=== PATIENT | female | born 1955 | race Caucasian/White ===

== ENCOUNTER 2024-02-13 13:38 | Outpatient (AMB) | payer OTHER, SELFPAY ==
--- NOTE | 2024-02-13 13:40 | MHC.OFFVIS ---
Intake Vital Signs 02/13/24 13:48 Height 5 ft 7 in Weight 161 lb BMI 25.2 BP 110/68 Blood Pressure Location Rt brachial Position Sitting Respiration 16 Pulse 62 Pulse Source Pulse Oximeter Pulse Oximetry (%) 98 Oxygen Delivery Method Room Air Intake Visit Reasons: benign neoplasm of cerebral meninges-CONF Intake Note: Pt presents for new pt evaluation for benign neoplasm of cerebral meninges. Protection Officer Required: No Allergies lisinopril Allergy (Mild, Verified 02/13/24 13:42) Nausea and Vomiting Medication List - Last Reconciled 02/13/24 by Rafaela Miller MD albuterol sulfate 90 mcg/actuation 2 puffs inhalation Q6H PRN alprazolam 2 mg PO BID amlodipine-valsartan 5-160 mg 1 tab PO DAILY aripiprazole 10 mg PO BEDTIME atorvastatin 80 mg PO DAILY citalopram 10 mg PO DAILY cyclobenzaprine 7.5 mg PO TID dextroamphetamine-amphetamine 20 mg ER 20 mg PO DAILY diclofenac sodium 1.6% ea topical docusate sodium 100 mg PO DAILY gabapentin 100 mg PO BID hydralazine 25 mg PO TID lidocaine 5% (Lidoderm) 1 patch topical DAILY meloxicam 15 mg PO DAILY metoprolol tartrate 12.5 mg PO BID HPI HPI Comments History of Present Illness Details 68y/o female comes for neurological evaluation SHe had a stroke about 1 year ago . she was admitted at [facility] and has dizziness, feeling off balance, vomiting , passing. patient does not recall the whole history .she was in ICU for 4 days and about 1 month at a rehab. Review of her MRI from June 2022 showed an acute right cerebellar infarct without hemorrhagic transformation, high grade stenosis of right vertebral artery , left parafalcine meningioma flattening the superior sagittal sinus , chronic lacunar infarcts . CTA head and neck - June 2022 - No acute intracranial large vessel occlusion severe focal stenosis of small right middle cerebral artery anterior division branch arising from M1. severe stenosis of distal nondominant right vertebral artery. 19mmleft parafalcine meningioma she reports she has residual weakness, balance issues . she has double vision when tired. No vertigo . she has mild swallowing issues. There is also a mention of benign mass in the meninges which the patient is not aware off. she has h/o bipolar anxiety .she also has memory issues - mostly short term she has snoring and has some insomnia.she reports gasping arousals. she reports softer voice and drooling. she reports constipation since her stroke .No vertigo or diplopia [facility] Medical History (Updated 02/14/24 @ 10:29 by Rafaela Miller MD) Arterial ischemic stroke, vertebrobasilar, cerebellar, chronic Meningioma, cerebral Hyperreflexia Neck pain CVA (cerebrovascular accident due to intracerebral hemorrhage) Ataxia Heart disease COPD (chronic obstructive pulmonary disease) Asthma Smoker Osteoarthritis Depression Bipolar 1 disorder ADD (attention deficit disorder) HTN (hypertension) Breast implant status Surgical History History of ankle surgery Family History Mother No problems noted. Father No problems noted. Social History Household Members: Family Household Members Other:: Daughter Steff Caregiver staying overnight: Yes Housing: House Alcohol intake: current Comment: Occasional Patient Tobacco Use Status: Former Tobacco user Tobacco use type: Cigarette and Smokeless Tobacco Years Smoked: almost 50 years, quit in 2021- currently vapes Physical Exam Vital Signs: Last Vital Signs Pulse 62 02/13/24 13:48 Resp 16 02/13/24 13:48 BP 110/68 02/13/24 13:48 Pulse Ox 98 02/13/24 13:48 Oxygen Delivery Method Room Air 02/13/24 13:48 BMI result Body Mass Index 25.2 Const Orientation/consciousness: patient oriented x3 Eyes Pupils: Equal, round and reactive pupils present Neuro Other: Mild facial asymmetry with widened palpebral fissure on left and mildly decreased facial movement on the right Mild hoarse voice Decreased blink and facial expression Head tremors Decreased range of motion neck No rest tremors 3 + cog wheel rigidity right Upper extremity FFM decreased silvia R>L Foot taps decreased silvia R>L Motor - 5/5 speech mild dysprosody Gait- stooped, bradykinetic small steps , decreased arm swings silvia General: patient oriented x3 and moves all extremities Cranial nerves: Yes Facial sensation intact/muscles of mastication intact, Yes Equal, round and reactive pupils present, Yes Bilaterally intact EOM present, Yes Nystagmus not present, Yes Midline tongue present and Yes Symmetric palate elevation present Cognition (Neuro): normal cognition Deep tendon reflexes (DTR's): Right triceps reflex intensity grade: 3+, Left triceps reflex intensity grade: 3+, Rt Biceps (C5, C6): 3+, Left biceps reflex intensity grade: 3+, Right brachioradialis reflex intensity grade: 3+, Left brachioradialis reflex intensity grade: 3+, Right patellar reflex intensity grade: 4+ and Left patellar reflex intensity grade: 4+ Results Reviewed Results Reviewed: MRI from June 2022 showed an acute right cerebellar infarct without hemorrhagic transformation, high grade stenosis of right vertebral artery , left parafalcine meningioma flattening the superior sagittal sinus , chronic lacunar infarcts . CTA head and neck - June 2022 - No acute intracranial large vessel occlusion severe focal stenosis of small right middle cerebral artery anterior division branch arising from M1. severe stenosis of distal nondominant right vertebral artery. 19mmleft parafalcine meningioma Assessment & Plan Assessment & Plan (1) Arterial ischemic stroke, vertebrobasilar, cerebellar, chronic: Code(s): Z86.73 - Personal history of transient ischemic attack (TIA), and cerebral infarction without residual deficits (2) Meningioma, cerebral: Comment: left parafalcine meningioma Code(s): D32.0 - Benign neoplasm of cerebral meninges (3) Neck pain: Code(s): M54.2 - Cervicalgia (4) Hyperreflexia: Code(s): R29.2 - Abnormal reflex (5) Ataxia: Comment: post stroke ? parkinsonism Code(s): R27.0 - Ataxia, unspecified Plan Reviewed reports from [facility]. Discussed about risk factors for Stroke and risk factor management. Smoking cessation discussed Restart Aspirin 81mg qd I will trial her on carbidopa/levodopa 25/100 bid MRI C spine to evaluate for spinal stenosis PT for gait training repeat MRI Brain to assess meningioma size Orders: Orders PT Evaluation and Treatment 02/13/24 R27.0 - Ataxia, unspecified MR cervical spine wo con 02/13/24 M54.2 - Cervicalgia, R27.0 - Ataxia, unspecified, R29.2 - Abnormal reflex MR head/brain wo con 02/13/24 I61.9 - Nontraumatic intracerebral hemorrhage, unspecified Medications: New carbidopa-levodopa 25-100 mg (Sinemet) 1 tab PO BID 60 tabs 2RF aspirin (Adult Low Dose Aspirin) 81 mg PO DAILY 30 tabs 6RF Coding Level of Care Code New Pt Level 4 (94023) Diagnoses Arterial ischemic stroke, vertebrobasilar, cerebellar, chronic Z86.73 Meningioma, cerebral D32.0 Neck pain M54.2 Hyperreflexia R29.2 Ataxia R27.0
[2024-02-13 13:48] VITALS: BP 110/68; PULSE 62; RESP 16; O2SAT 98; BMI 25.2
== END 2024-02-13 14:26 | disposition home or self-care (01) ==
PROVIDERS: Visit Provider Psychiatry & Neurology Neurology
DX: Z86.73 Personal history of transient ischemic attack (TIA), and cerebral infarction without residual deficits (principal); D32.0 Benign neoplasm of cerebral meninges; M54.2 Cervicalgia; R29.2 Abnormal reflex; R27.0 Ataxia, unspecified
CPT/HCPCS: 99204

== ENCOUNTER → 2024-02-13 13:38 | Outpatient (BNVA) | payer OTHER, SELFPAY | PROVIDERS: Visit Provider Psychiatry & Neurology Neurology ==

== ENCOUNTER 2025-02-05 12:41 | Outpatient (REF) | payer OTHER, SELFPAY ==
--- OUTSIDE RECORDS SUMMARY | 2025-02-05 16:00 | XMS_ITS ---
Author Name MS. Benedict Montanez APRN Address [address] [place] [address] Phone [phone] [facility] Team Providers Care Flying [employer] Instructor Name Role Phone Shaista Montanez Unavailable [phone] Mary Lujan Unavailable Unavailable GARNER JARON Unavailable [phone] Unavailable Unavailable [phone] Unavailable Unavailable [phone] [facility] Unavailable [phone] Reason for Referral Not Available Allergies, adverse reactions, alerts Allergen Type Reaction Severity Status Onset Date Lisinopril Allergy to substance (disorder) Nausea and vomiting Unknown Active N/A History of medication use Medication Class Instructions Start Date End Date Diclofenac Sodium 1 % Gel APPLY 4 GRAMS TOPICALLY TO THE AFFECTED AREA FOUR TIMES DAILY 2023-07-21 No Data Available amLODIPine Besylate-Valsarta n 5/160 mg Tab TAKE 1 TABLET BY MOUTH EVERY DAY 2023-02-12 No Data Available Amphetamine-Dextroamphetamin e 20 mg Tab TAKE 1 TABLET BY MOUTH QD 2023-02-13 No Data Availa ble diazePAM 2 mg Tab TAKE 1 TABLET BY JIMI TH TWICE DAILY FOR 3 DAYS 2023-02-26 2023-08-09 ALPRAZolam 2 mg Tab TAKE 1/2 TO 1 TABLET BY MOUTH TWICE DAILY NEEDED FOR SEVERE ANXIETY 2023-02-27 No Data Available Atorvastatin Calcium 80 mg Tab TAKE 1 TA BLET BY MOUTH ONCE DAILY 2022-09-19 No Data Available Docusate Sodium 100 mg Cap TAKE 1 CAPSUL E BY MOUTH two (2) times a day 2022-11-28 No Data Available Gabapentin 100 mg Cap TAKE TWO CAPSULES BY MOUTH AT BEDTIME 2022-12-31 No Data Available hydrALAZINE 25 mg Tab TAKE 1 TABLET BY M OUTH two (2) times a day 2022-12-31 No Data Available Metoprolol Tartrate 25 mg Tab TAKE 1 TAB LET BY MOUTH two (2) times a day 2022-12-31 No Data Available Albuterol Sulfate HFA 108 (9 0 Base) MCG/ACT Aerosol Solution INHALE TWO PUFFS BY MOUTH EVERY 4 HOURS NEEDED FOR SHORTNESS OF BREATH OR FOR WHEEZING 2022-09-19 No Data Available amLODIPine Besylate 10 mg Tab TAKE 1 TAB LET BY MOUTH ONCE DAILY 2022-12-31 No Data Available Aspirin Low Dose 81 mg Tab delayed rel TAKE 1 TABLET BY MOUTH ONCE DAILY 2022-09-19 No Data Available Baclofen 10 mg Tab TAKE 1 TABLET BY JIMI TH TWICE DAILY NEEDED TO CUT DOWN ON ANY CRAVINGS 2023-03-28 No Data Available Citalopram Hydrobromide 10 m g Tab TAKE 1 TABLET BY MOUTH EVERY MORNING 2023-03-28 No Data Available ARIPiprazole 10 mg Tab TAKE 1 TABLET BY MOUTH ONCE DAILY 2022-09-19 No Data Available Lidoderm 5 % Patch 1 patch topically to affected area daily remove after 12 hours for pain 2023-08-09 No Data Available Meloxicam 15 mg Tab 1 tablet orally QD P RN pain 2023-08-09 No Data Available Cyclobenzaprine 7.5 mg Tab 1 tablet oral ly daily at bedtime as needed for muscle spasm 2023-08-09 No Data Available Diclofenac Sodium 1 % Gel 4 grams topica lly to affected area 4 times per day PRN 2023-09-05 No Data Available Carbidopa-Levodopa 25/100 mg Tab TAKE 1 TABLET BY MOUTH TWICE DAILY 2024-02-13 No Data Available THERAPEUTIC-M TABS Take one tablet by m outh daily. 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 2024-06-02 N/A WeaknessLethargy Inactive 2023-08-09 N/A Hypertensive heart failure Active 2023-08-09 N /A Aneurysm of carotid artery Active 2023-08-09 N /A Bipolar II disorder, moderat e, depressed, with anxious distress Active 2023-08-09 N/A Chronic obstructive pulmonar y disease, unspecified COPD type Active 2023-08-09 N/A [facility] and other [facility] care Active 2024-06-02 N/A Benign neoplasm of cerebral meninges Active 2022 N/A Encounters Encounters Type Facility Date of Service Diagnosis/Co mplaint No Data Available [facility], ([place]) [place]/2023 Hemiplga following cerebral infarction affecting unsp sideHypertensive heart disease with heart failureHeart failure, unspecifiedBipolar disorder, unspecifiedMajor depressive disorder, recurrent, in remission, unspecifiedChronic obstructive pulmonary disease, unspecifiedPersonal history of other specified conditionsBenign neoplasm of cerebral meningesWeaknessOther fatigueOther chronic painOther muscle spasmPolyosteoarthritis, unspecifiedPain, unspecified No Data Available [facility], ([place] 08/09/2023 No Data Available [facility] No Data Available [facility]20[place] No Data Available [facility] No Data Available [facility]20[place] No Data Available [facility] No Data Available [facility] No Data Available [facility] No Data Available [facility]20[place] Hemiplga following cerebral infarction affecting unsp sideOther chronic painOther muscle spasmPolyosteoarthritis, unspecifiedPain, unspecified No Data Available [facility] ([place] 09[place]20[place] Estab. patient 20-29min; 1 stable chronic or 2 minor; add add modifier 95 for video, modifier 93 for phone [facility] ([place] 09/12/2023 Hypertensive heart disease with heart failureHeart failure, unspecifiedBipolar disorder, unspecifiedBenign neoplasm of cerebral meningesWeaknessOther fatigueOther chronic painOther muscle spasmPolyosteoarthritis, unspecifiedPain, unspecifiedBicipital tendinitis, unspecified shoulder Estab. patient 20-29min; 1 stable chronic or 2 minor; add add modifier 95 for video, modifier 93 for phone [facility], ([place]) 09/12/2023 Estab. patient 20-29min; 1 stable chronic or 2 minor; add add modifier 95 for video, modifier 93 for phone [facility] ([place] 09[place]/2023 Estab. patient 30-39min; chronic exacerbation, 2 stable chronic or 1 acute illness add add modifier 95 for video, (do not use for phone, instead use [id number]) [facility] 06[place]02/2024 Hypertensive heart disease with heart failureHeart failure, unspecifiedBipolar II disorderChronic obstructive pulmonary disease, unspecifiedBenign neoplasm of cerebral meningesHemiplga following cerebral infrc affecting left nondom sideOther drug induced secondary ParkinsonismAneurysm of carotid arteryOther problems related to medical facilities and other health carePersonal history of nicotine dependence Estab. patient 30-39min; chronic exacerbation, 2 stable chronic or 1 acute illness add add modifier 95 for video, (do not use for phone, instead use [id number]) [facility] 06[place] Estab. patient 30-39min; chronic exacerbation, 2 stable chronic or 1 acute illness add add modifier 95 for video, (do not use for phone, instead use 57860-33) [facility] Estab. patient 30-39min; chronic exacerbation, 2 stable chronic or 1 acute illness add add modifier 95 for video, (do not use for phone, instead use 14703-25) [facility] Estab. patient 30-39min; chronic exacerbation, 2 stable chronic or 1 acute illness add add modifier 95 for video, (do not use for phone, instead use [id number]) [facility] Estab. patient 30-39min; chronic exacerbation, 2 stable chronic or 1 acute illness add add modifier 95 for video, (do not use for phone, instead use 69084-07) [facility] [place] 06[place] Estab. patient 30-39min; chronic exacerbation, 2 stable chronic or 1 acute illness add add modifier 95 for video, (do not use for phone, instead use 20509-06) [facility] ([place] Estab. patient 30-39min; chronic exacerbation, 2 stable chronic or 1 acute illness add add modifier 95 for video, (do not use for phone, instead use 78541-60) [facility] ([place] 06[place]02/20[place] Estab. patient 30-39min; chronic exacerbation, 2 stable chronic or 1 acute illness add add modifier 95 for video, (do not use for phone, instead use [id number]) [facility] ([place] 06[place]02/20[place] Estab. patient 30-39min; chronic exacerbation, 2 stable chronic or 1 acute illness add add modifier 95 for video, (do not use for phone, instead use [id number]) [facility] ([place] 06[place]02/20[place] Estab. patient 30-39min; chronic exacerbation, 2 stable chronic or 1 acute illness add add modifier 95 for video, (do not use for phone, instead use 82153-72) [facility] ([place] 06/02/2024 Vital Signs Date of Collection Vitals 2023-08-09 13:38:17 Height - 167.64 cmWe ight - 70.76 kgBody Mass Index (BMI) - 25.18 kg/m2BP Diastolic - 80.0 mm[Hg]BP Systolic - 122.0 mm[Hg] 2023-09-12 08:34:50 Pain Scale - 6.0 {sc ore} 2024-06-02 12:14:06 Height - 170.18 cmWe ight - 65.77 kgBody Mass Index (BMI) - 22.71 kg/m2BP Diastolic - 68.0 mm[Hg]BP Systolic - 110.0 mm[Hg]Pain Scale - 0.0 {score} Social History Social History Social History Observation Description Effec tive Time Current Smoking Status Former smoker 2025-01-24 3 Sex Female History of Procedures Procedures Service Procedure code Service date Servicing provider Phone# No Data Available [id number] 2023-08-09 No Data Available No Data Available Pain Assessment - NO pain present (1126F) 1126F 2023-08-09 No Data Available No Data A vailable Medication List Documented (1159F) 1159F 2023-08-09 No Data Available No Data Lizbeth ilable Medication Review by prescribing provider or pharmacist documented (1160F) 1160F 2023-08-09 No Data Available No Data Lizbeth ilable Advance Care Directive Advance care planning discussion documented in the medical record (1158F) 1158F 2023-08-09 No Data Available No Data Availa ble BMI obtained (3008F) 3008F 2023-08-09 No Data Availab le No Data Available Advance care planning discussed and documented ? advance care plan or surrogate decision-maker was documented in the medical record. (1123F) 1123F 2023-08-09 No Data Available No Data Availa ble SBP < 130 (3074F) 3074F 2023-08-09 No Data Available No Data Available DBP 80-89 (3079F) 3079F 2023-08-09 No Data Available No Data Available No Data Available [id number] 2023-09-05 No Data Available No Data Available Medication List Documented (1159F) 1159F 2023-09-05 No Data Available No Data Lizbeth ilable Estab. patient 20-29min; 1 stable chronic or 2 minor; add add modifier 95 for video, modifier 93 for phone 36083 2023-09-12 No Data Available No Data Availa ble Medication List Documented (1159F) 1159F 2023-09-12 No Data Available No Data Lizbeth ilable Pain Assessment - Pain Documented on a Pain Scale (1125F) 1125F 2023-09-12 No Data Available No Data Lizbeth ilable Estab. patient 30-39min; chronic exacerbation, 2 stable chronic or 1 acute illness add add modifier 95 for video, (do not use for phone, instead use [id number]) 00018 2024-06-02 No Data Available No Data Availa ble Medication List Documented (1159F) 1159F 2024-06-02 No Data Available No Data Lizbeth ilable Medication Review by prescribing provider or pharmacist documented (1160F) 1160F 2024-06-02 No Data Available No Data Lizbeth ilable Pain Assessment - NO pain present (1126F) 1126F 2024-06-02 No Data Available No Data A vailable BMI obtained (3008F) 3008F 2024-06-02 No Data Availab le No Data Available Advance Care Directive Advance care planning discussion documented in the medical record (1158F) 1158F 2024-06-02 No Data Available No Data Availa ble Advance care planning discussed and documented ? advance care plan or surrogate decision-maker was documented in the medical record. (1123F) 1123F 2024-06-02 No Data Available No Data Availa ble SBP < 130 (3074F) 3074F 2024-06-02 No Data Available No Data Available DBP <80 (3078F) 3078F 2024-06-02 No Data Available No Data Available No Data Available G8431 2024-06-02 No Data Available No Data Available Functional Status Assessed (1170F) 1170F 2024-06-02 No Data Available No Data Avail able Functional Status Functional Category Effective Dates Activities of Daily Livin2023-08-13 Bathing: Independent 2023-08-13 Dressing: Independent 2023-08-13 Eating: Independent 2023-08-13 Ambulation/Walking: Independent Toileting: Independent 2023-08-13 Transferring: Independent 2023-08-13 ambulating with cane and waiting for her electric chair, shower chair 2023-09-12 goes to bathroom regular 2023-09-12 increased fiber 2023-09-12 Cognition Status: Oriented t o Person, Place and Time? ? ,Recall 3/3 unrelated words at 3 minutes 2024-06-02 ADL: Bathing Needs Assistanc e , Dressing Independent , Eating Independent , Ambulation Independent , Transferring Independent and Toileting Independent 2024-06-02 IADL: Medication Independent , Meal Prep Independent , Shopping Needs Assistance , Driving or Public Transport Needs Assistance , Housework Needs Assistance , Finances Needs Assistance 2024-06-02 Mental Status Status Date Cognition Status: Oriented t o Person, Place and Time,Recall 3/3 unrelated words at 3 minutes 2024-06-02 Assessments Date of Service Assessments 2023-08-09 13:38:17 WeaknessLethargyHist ory of hemorrhagic stroke with residual hemiparesisCerebral infarction due to unspecified occlusion or stenosis of right anterior cerebral arteryHypertensive heart failureVascular diseaseBipolar disorderMDD (recurrent major depressive disorder) in remissionChronic obstructive pulmonary disease, unspecified COPD typeHistory of medical problemsBenign neoplasm of cerebral meningesChronic pain-Acute painMuscle spasmPrimary osteoarthritis involving multiple joints 2023-09-05 13:39:48 History of hemorrhag ic stroke with residual hemiparesisChronic pain-Acute painMuscle spasmPrimary osteoarthritis involving multiple joints 2023-09-12 08:34:50 History of hemorrhag ic stroke with residual hemiparesisWeaknessLethargyHypertensive heart failureBipolar disorderMDD (recurrent major depressive disorder) in remissionBenign neoplasm of cerebral meningesChronic pain-Acute painMuscle spasmPrimary osteoarthritis involving multiple jointsBiceps tendinitis 2024-06-02 12:14:06 Hemiplegia and hemip aresis following cerebral infarction affecting left non-dominant sideHypertensive heart failureAneurysm of carotid arteryBipolar II disorder, moderate, depressed, with anxious distressChronic obstructive pulmonary disease, unspecified COPD typeBenign neoplasm of cerebral meningesParkinsonism due to drugOther problems related to medical facilities and other health care Plan of Care Date of Service Plans 2023-08-09 13:38:17 Pain Assessment - NO pain documented (1126F)Medication Review by prescribing provider or pharmacist documented (1160F)Medication List Documented (1159F)Functional Status Assessed (1170F)Advance Care Directive Advance care planning discussion documented in the medical record (1158F)BMI obtained (3008F)SBP < 130 (3074F)DBP 80-89 (3079F)Advance care planning discussed and documented ? advance care plan or surrogate decision-maker was documented in the medical record. (1123F)Phone (patient, parent, or guardian); 21-30 minutes of medical discussion (no modifier 95)Continue to see PCP. Follow-up with [facility] as needed for any acute or disease education needs that may arise.05/16/2023 1:40 PM PDT Office Visit [address] [phone], Yashira, NPWeakness (Primary Dx);LethargyTherapeutic-M 9 mg iron-400 mcg tablet TAKE 1 TABLET BY MOUTH ONCE DAILYcontinue plan of care for chronic and comorbid disease processes fall/safety precautionsno s/sx or exacerbation continue plan of care and follow up as instructed amLODIPine Besylate 10 mg Tab TAKE 1 TABLET BY MOUTH ONCE DAILYamLODIPine Besylate-Valsartan 5/160 mg Tab TAKE 1 TABLET BY MOUTH EVERY DAYhydrALAZINE 25 mg Tab TAKE 1 TABLET BY MOUTH two (2) times a dayMetoprolol Tartrate 25 mg Tab TAKE 1 TABLET BY MOUTH two (2) times a dayhx includes: Aneurysm of carotid arteryno acute issues continue plan of care for ongoing monitoring and management of multiple chronic and comorbid disease processeshx includes:Unsatisfactory living conditions Lack of access to transportation Bipolar 1 disorder continue plan of care and follow up as instructed ALPRAZolam 2 mg Tab TAKE 1/2 TO 1 TABLET BY MOUTH TWICE DAILY NEEDED FOR SEVERE ANXIETYARIPiprazole 10 mg Tab TAKE 1 TABLET BY MOUTH ONCE DAILYCitalopram Hydrobromide 10 mg Tab TAKE 1 TABLET BY MOUTH EVERY MORNINGhx includes: Moderate persistent asthma without complication Mild intermittent asthma without complication Chronic bronchitisno s/sx of exacerbation pt has no maintenance plan of care- to follow up with PCP as instructed for ongoing monitoring and management pulm input as indicated continue prn plan of care Albuterol Sulfate HFA 108 (90 Base) MCG/ACT Aerosol Solution INHALE TWO PUFFS BY MOUTH EVERY 4 HOURS NEEDED FOR SHORTNESS OF BREATH OR FOR WHEEZINGEnvironmental allergiesEssential hypertensionRecurrent major depressive disorder ADHDH/O colonoscopy with polypectomyMild intermittent asthma without complicationChronic bronchitis Bipolar 1 disorderHistory of CVA (cerebrovascular accident)Tobacco use disorderModerate persistent asthma without complicationUnsatisfactory living conditionsLack of access to transportationper medical record 2021 Benign neoplasm of cerebral meningesno acute issues continue plan of care and follow up as instructedper acute call 08/09/23: Still having right arm pain, between elbow and shoulder. When she pushes shoulder to back pain is excruciating at times. At times feels like arm is going to give out and sometimes cannot use arm. Was prescribed Diclofenac Sodium gel on 07/21/23. Denies any redness, swelling or chest pain. Has an appointment with PCP on 08/16. Had stroke 8 months ago and right side was affected. She has taken Ibuprofen 800 mg and helps somewhat per member. When she puts arm over head it is very painful. Cyclobenzaprine 7.5 mg Tab 1 tablet orally daily at bedtime as needed for muscle spasm #15 tablet [id number] New Meloxicam 15 mg Tab 1 tablet orally QD PRN pain #30 tablet [id number] New Lidoderm 5 % Patch 1 patch topically to affected area daily remove after 12 hours for pain #30 patch [id number] New Diclofenac Sodium 1 % Gel 4 grams topically to affected area 4 times per day PRN #1 applicator [id number] 2023-09-05 13:39:48 Phone (patient, pare nt, or guardian); 11-20 minutes of medical discussion (no modifier 95)Continue to see PCP. [facility] disease [facility] needs that may arise 18/06.continue plan of care for chronic and comorbid disease processes fall/safety precautionsper acute call 08/09/23: Still having right arm pain, between elbow and shoulder. When she pushes shoulder to back pain is excruciating at times. At times feels like arm is going to give out and sometimes cannot use arm. Was prescribed Diclofenac Sodium gel on 07/21/23. Denies any redness, swelling or chest pain. Has an appointment with PCP on 08/16. Had stroke 8 months ago and right side was affected. She has taken Ibuprofen 800 mg and helps somewhat per member. When she puts arm over head it is very painful. Cyclobenzaprine 7.5 mg Tab 1 tablet orally daily at bedtime as needed for muscle spasm #15 tablet [id number] New Meloxicam 15 mg Tab 1 tablet orally QD PRN pain #30 tablet [id number] New Lidoderm 5 % Patch 1 patch topically to affected area daily remove after 12 hours for pain #30 patch [id number] New Diclofenac Sodium 1 % Gel 4 grams topically to affected area 4 times per day PRN #1 applicator [id number] requesting refill of diclofenac gel 2023-09-12 08:34:50 Televideo 20-29min; 1 stable chronic or 2 minor; add modifier 95Continue to see PCP. Follow-up with [facility] as needed for any acute or disease education needs that may arise 18/06.continue plan of care for chronic and comorbid disease processes fall/safety [id number] had stroke 7-8 months ago, denies any deficits at this time, eating ok, normal movement of all extremities, normal bowel bladder function, denies any headaches or blurred vision will refer to neuro as per member she has not followed with neuro05/16/2023 1:40 PM PDT Office Visit [address] [phone], Karen, NPWeakness (Primary Dx);LethargyTherapeutic-M 9 mg iron-400 mcg tablet TAKE 1 TABLET BY MOUTH ONCE DAILY09/12 states her weakness/pain is something that has been occurring for the last month intermittently , denies any headache dizziness, nausea, vomiting, states she gets weakness/pain to right arm when she tries to brush her hair, 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 will refer to PTno s/sx or exacerbation continue plan of care and follow up as instructed amLODIPine Besylate 10 mg Tab TAKE 1 TABLET BY MOUTH ONCE DAILYamLODIPine Besylate-Valsartan 5/160 mg Tab TAKE 1 TABLET BY MOUTH EVERY DAYhydrALAZINE 25 mg Tab TAKE 1 TABLET BY MOUTH two (2) times a dayMetoprolol Tartrate 25 mg Tab TAKE 1 TABLET BY MOUTH two (2) times a day09/12 denies any sob or edema at this timehx includes:Unsatisfactory living conditions Lack of access to transportation Bipolar 1 disorder continue plan of care and follow up as instructed ALPRAZolam 2 mg Tab TAKE 1/2 TO 1 TABLET BY MOUTH TWICE DAILY NEEDED FOR SEVERE ANXIETYARIPiprazole 10 mg Tab TAKE 1 TABLET BY MOUTH ONCE DAILYCitalopram Hydrobromide 10 mg Tab TAKE 1 TABLET BY MOUTH EVERY [id number] followed by psychiatry [facility] appt [facility] Benign neoplasm of cerebral meningesno acute issues continue plan of care and follow up as instructed 09/12 will refer to a neurologist has not been to one in a while denies any pertinent s/sper acute call 08/09/23: Still having right arm pain, between elbow and shoulder. When she pushes shoulder to back pain is excruciating at times. At times feels like arm is going to give out and sometimes cannot use arm. Was prescribed Diclofenac Sodium gel on 07/21/23. Denies any redness, swelling or chest pain. Has an appointment with PCP on 08/16. Had stroke 8 months ago and right side was affected. She has taken Ibuprofen 800 mg and helps somewhat per member. When she puts arm over head it is very painful. Cyclobenzaprine 7.5 mg Tab 1 tablet orally daily at bedtime as needed for muscle spasm #15 tablet [id number] New Meloxicam 15 mg Tab 1 tablet orally QD PRN pain #30 tablet [id number] New Lidoderm 5 % Patch 1 patch topically to affected area daily remove after 12 hours for pain #30 patch [id number] New Diclofenac Sodium 1 % Gel 4 grams topically to affected area 4 times per day PRN #1 applicator [id number] requesting refill of diclofenac gel 09/12 states she has pain and weakness to right arm especially when lifting above her head, will refer to PTto right arm states she has pain and weakness to right arm especially when lifting above her head, will refer to PT 2024-06-02 12:14:06 Medication Review by prescribing provider or pharmacist documented (1160F)Medication List Documented (1159F)Functional Status Assessed (1170F)Advance Care Directive Advance care planning discussion documented in the medical record (1158F)BMI obtained (3008F)SBP < 130 (3074F)DBP <80 (3078F)Televideo 30-39min; chronic exacerbation, 2 stable chronic or 1 acute illness add modifier 95Advance care planning discussed and documented ? advance care plan or surrogate decision-maker was documented in the medical record. (1123F)Pain Assessment - NO pain documented (1126F)Continue to see PCP. Follow-up with [facility] as needed for any acute or disease education needs that may arise.continue plan of care for chronic and comorbid disease processes fall/safety [id number] had stroke 7-8 months ago, denies any deficits at this time, eating ok, normal movement of all extremities, normal bowel bladder function, denies any headaches or blurred vision will refer to neuro as per member she has not followed with neuro06/02/24: Increase physical activities as tolerated. Maintain safety and fall precautions. Follow up with PCP as indicated.no s/sx or exacerbation continue plan of care and follow up as instructed amLODIPine Besylate 10 mg Tab TAKE 1 TABLET BY MOUTH ONCE DAILYhydrALAZINE 25 mg Tab TAKE 1 TABLET BY MOUTH two (2) times a dayMetoprolol Tartrate 25 mg Tab TAKE 1 TABLET BY MOUTH two (2) times a day09/12 denies any sob or edema at this time 06/02/24: Stable. Continue medications as directed. Encouraged diet and weight management. Increase physical activities as tolerated. Maintain safety and fall precautions. Follow up with PCP as indicated.hx includes: Aneurysm of carotid arteryno acute issues continue plan of care for ongoing monitoring and management of multiple chronic and comorbid disease processes atorvastatin06/02/24: Managed with atorvastatin. Continue medications as directed. Encouraged diet and weight management. Discussed importance of routine labs and physical exams. Increase physical activities as tolerated. Maintain safety and fall precautions. Follow up with PCP as indicated.hx includes:Unsatisfactory living conditions Lack of access to transportation Bipolar 1 disorder continue plan of care and follow up as instructed ALPRAZolam 2 mg Tab TAKE 1/2 TO 1 TABLET BY MOUTH TWICE DAILY NEEDED FOR SEVERE ANXIETYARIPiprazole 10 mg Tab TAKE 1 TABLET BY MOUTH ONCE DAILYCitalopram Hydrobromide 10 mg Tab TAKE 1 TABLET BY MOUTH EVERY [id number]/18 followed by psychiatry last appt 1 month ago06/02/24: PHQ-9 score: 10, YON-7 score: 10Continue medications as directed. Encouraged relaxation, reassurance, and redirection techniques as needed. Increase physical activities as tolerated. Maintain safety and fall precautions. Follow up with psychiatrist as indicated.hx includes: Moderate persistent asthma without complication Mild intermittent asthma without complication Chronic bronchitisno s/sx of exacerbation pt has no maintenance plan of care- to follow up with PCP as instructed for ongoing monitoring and management pulm input as indicated continue prn plan of care Albuterol Sulfate HFA 108 (90 Base) MCG/ACT Aerosol Solution INHALE TWO PUFFS BY MOUTH EVERY 4 HOURS NEEDED FOR SHORTNESS OF BREATH OR FOR WHEEZING06/02/24: Stable. Continue medications as directed. Encouraged deep breathing and relaxation techniques as needed. Increase physical activities as tolerated. Maintain safety and fall precautions. Follow up with PCP as indicated.per medical record 2021 Benign neoplasm of cerebral meningesno acute issues continue plan of care and follow up as instructed 09/12 will refer to a neurologist has not been to one in a while denies any pertinent s/s 06/02/24: Continue current treatment plan as directed. Discussed importance of routine labs and physical exams. Maintain safety and fall precautions. Follow up with neurologist as indicated.Managed with carbidopa-levodopa. Continue medications as directed. Encouraged relaxation, reassurance techniques as needed. Increase physical activities as tolerated. Maintain safety and fall precautions. Follow up with PCP as indicated.PSYCH CONTINGENCY PLANMember to call for the following symptoms: Agitation/ Delirium/ RestlessnessPlanned intervention: Contact mental health professional:/ Transfer member to [address] [place] [address]/ Haloperidol 0.5mg PO q8h PRN agitation/ Trazodone 50mg at bedtime/ Remind member of breathing exercises/ Increase dose of current medication:/ Limit extra stimulation. Goals Date Goal 2023-09-05 continue medications as prescribed 2023-09-05 call if you feel ill , have any questions or concerns 2023-09-05 she has citalopram a nd apriprazole in the pharmacy stated she called in but it is due to fill in 4 days 2023-09-05 no new concerns 2023-09-05 aware next visit 2023-09-12 continue medications as prescribed 2023-09-12 her weakness and rig ht arm pain is chronic will refer to neuro and PT 2023-09-12 educated and verbali zed understanding of plan of care, aware of when to go to ER for s/s of stroke FAST 2024-06-02 Remember to follow u p with PCP and specialists as directed.Call if you have any questions, comments, or concerns.Keep taking your medications as prescribed. Health Concerns Date Concern 2024-06-02 Visit completed in g audio/video. Patient/Guardian agreed to visit via telehealth. Today, patient has chief complaint of: follow up care and comprehensive review.Reviewed Allergies, Medications, Active Medical conditions, past medical/surgical history, Social history. 2024-06-02 Advance Care Plan Co nversationDate of Conversation: 06/02/2024Life Limiting Diagnosis: Currently on Hospice NoCode Status: YES CPR: Attempt ResuscitationGoals of Care: Curative: Attempt to sustain life by all medically effective meansNutrition goals: Feeding through new or existing surgically placed tube is ok Do you have a Durable Power of Vegetable Ii Farmworker for Healthcare, or Healthcare Proxy Or Guardianship? Yes, POAIf so, Who? Steff Failing, DaughterDo you have a written Advance Directive? Has Advance DirectiveOther details of discussion: (Who was present, patients description of wishes/goals)Today's plan: 1123F : AD or surrogate was documented in the medical record. 2024-06-02 Most recent hospital stay(s) or ER visit(s) and precipitating factors: None recenty reported in the past six months. 2024-06-02 Open HEDIS Measure lashonda coley: Reviewed
--- OUTSIDE RECORDS SUMMARY | 2025-02-05 16:00 | XMS_ITS | Clinical Summary ---
Author Organization [facility] Address [address] [place] [address] Phone Care Team Providers Care Manager Inspection Name Role Phone Alejandro Nguyen MD Primary Care Provider [phone] Surgical History Surgery Date Site/Laterality Comments OTHER SURGICAL HISTORY PROCEDURE: ---- OTHER ----; COMMENT: breast augmentation at 26 years old ANKLE SURGERY 1993 Left PROCEDURE: HISTORICAL ANKLE SURGERY; COMMENT: Left, s/p fall, 5 pins and screws Medical History Medical History Date Comments GERD (gastroesophageal reflux disease) 07/03/2017 DX:GERD (gastroesophageal reflux disease) HTN (hypertension) 07/03/2017 DX:HTN (hyper tension) Depression 07/03/2017 DX:Depression HLD (hyperlipidemia) 07/03/2017 DX:HLD (hyp erlipidemia) History of alcohol abuse 07/03/2017 DX:Hist ory of alcohol abuse; COMMENT: Quit drinking heavily in 2011 Bipolar disorder, manic ([facility]) 07/03/2017 DX:Bipolar disorder, manic (HCC) COPD (chronic obstructive pu lmonary disease) ([facility]) 07/03/2017 DX:COPD (chronic obstructive pulmonary disease) ([facility]) Bipolar disorder ([facility]) 07/03/2017 DX:Bi polar disorder ([facility]) Seizure disorder ([facility]) 08/07/2017 DX:Se izure disorder ([facility]) Family History Medical History Relation Name Comments Bipolar disorder Sister Relation Name Status Comments Father Mother Sister Social History Tobacco Use Types Packs/Day Years Used Date Smoking Tobacco: Every Day Smokeless Tobacco: Never Alcohol Use Standard Drinks/Week Comments Yes 0 (1 standard drink = 0.6 oz pur e alcohol) Comments Unknown Sex and Gender Information Value Date Recorded Sex Assigned at Not on file Legal Sex Female 4:06 PM EST Gender Identity Not on file Sexual Orientation Not on file Obstetrics History Plan of Treatment Health Maintenance Due Date Last Done Comments Breast Cancer Screening 1955 Zoster Vaccines (1 of 2) 2006 RSV Immunization Patients 60+ Years Old (1 - Risk 60-74 years 1-dose series) 2016 Colorectal Cancer Screening: Colonoscopy 10/25/2022 Falls Risk Assessment 10/25/2022 Medicare Annual Wellness Visit 10/25/2022 Osteoporosis Screening (Bone Density Screening) 10/25/2022 Social Influencers of Health Screening 10/25/2022 DTaP,Tdap,and Td Vaccines (2 - Td or Tdap) 04/07/2024 04/07/2014 COVID-19 Vaccine (3 - season) 2024 03/30/2022, 12/25/2021 Influenza Vaccine (#1) 2024 , 11/05/2017, 10/10/2016, Additional history exists Hypertension/CHF/CAD Annual BMP Blood Test 11/28/2024 11/28/2023 Depression Screening 12/29/2025 12/29/2024 Cholesterol Screening (Lipid Panel) 11/28/2028 11/28/2023, 12/30/2019 Hepatitis C Screening Completed 07/20/2021 Pneumococcal Vaccine: 50+ Years Completed 04/11/2023 HIB Vaccines Aged Out No longer eligi ble based on patient's age to complete this topic HPV Vaccines Aged Out No longer eligi ble based on patient's age to complete this topic Hepatitis A Vaccines Aged Out No long er eligible based on patient's age to complete this topic Hepatitis B Vaccines Aged Out No long er eligible based on patient's age to complete this topic IPV Vaccines Aged Out No longer eligi ble based on patient's age to complete this topic MMR Vaccines Aged Out No longer eligi ble based on patient's age to complete this topic Meningococcal ACWY Vaccine Aged Out N o longer eligible based on patient's age to complete this topic Meningococcal B Vacine Aged Out No lo nger eligible based on patient's age to complete this topic RSV Immunization Patients Under 20 months Aged Out No longer eligible based on patient's age to complete this topic Varicella Vaccines Aged Out No longer eligible based on patient's age to complete this topic Insurance [employer] MEDICARE MEDICAID - [place] Advance Directives Documents on File Type Date Recorded Patient Cap Sizer Expl anation Health Care Decision (hx) 07/26/2022 AD PEREIRA DIRECTIVE Health Care Decision (hx) 07/26/2022 AD PEREIRA DIRECTIVE Care Teams Manager Inspection Relationship Specialty Start Date End Date Alejandro Nguyen MD [address] [place] [id number] PCP - General Internal Medicine 04/25/17
--- OUTSIDE RECORDS SUMMARY | 2025-02-05 16:00 | XMS_ITS | Clinical Summary ---
Author Organization [facility] Address [address] [place] [address] Care Team Providers Care Reimbursement Coordinator Name Role Phone Dalila Sanchez PA-C Primary Care Provider [phone] Source Comments PLEASE NOTE, if this patient is a minor, it may be UNLAWFUL to discuss sensitive information that is contained in these records (such as FAMILY PLANNING, MENTAL HEALTH or SUBSTANCE ABUSE) with the minor patient's parent or other person without the patient's specific authorization.[facility] Allergies Active Allergy Reactions Criticality Noted Date Comments Lisinopril Nausea and Vomiting 09/04/2022 Other reaction(s): dry cough Medications blood pressure monitorIndications :Hyperlipidemia, unspecified hyperlipidemia type,Essential hypertension Check BP at home twice a day 1 Kit 10/03/20 21 Active lidocaine 5 % ointIndications:Pa in in both feet Apply topically nightly at bedtime 50 g 1 06/19/20 22 Active ARIPiprazole (ABILIFY) 10 mg tabletIndications: Medication management Take 1 Tablet by mouth once daily [id number] [place], [place] [phone] 30.00 Each 2 30 TAKE 1 TABLET BY MOUTH DAILY Authorized by: RAUL DYKESTake 10 mg by mouth once daily [id number] [place], [place] [phone] 30.00 Each 2 30 TAKE 1 TABLET BY MOUTH DAILY Authorized by: RAUL DYKES. PLEASE BUBBLE PACK 90 Tablet 09/19/20 22 Active FLOVENT HFA 110 mcg/actuation inhalerIndications :Medication management INHALE 1 PUFF BY MOUTH INTO THE lungs two (2) times a day 12 g 12/31/19 23 Active dextroamphetamine- amphetamine (ADDERALL) 20 mg tablet Take 1 Tablet by mouth 2 (two) times daily 01/13/20 23 Active albuterol HFA 90 mcg/actuation inhalerIndications :Medication management INHALE TWO PUFFS BY MOUTH EVERY 4 HOURS NEEDED FOR SHORTNESS OF BREATH OR FOR WHEEZING 8.5 g 5 03/19/20 23 Active baclofen (LIORESAL) 10 mg tablet TAKE 1 TABLET BY MOUTH TWICE DAILY NEEDED TO CUT DOWN ANY CRAVINGS 03/28/20 23 Active citalopram (CELEXA) 10 mg tablet Take 10 mg by mouth every morning 03/28/20 23 Active docusate sodium (COLACE) 100 mg capsule TAKE 1 CAPSULE BY MOUTH two (2) times a day 03/01/20 23 Active gabapentin (NEURONTIN) 100 mg capsule Take 200 mg by mouth nightly at bedtime 03/01/20 23 Active ibuprofen 800 mg tabletIndications: Pain in both lower extremities Take 1 Tablet by mouth 3 (three) times daily as needed for pain 90 Tablet 04/23/20 24 Active carbidopa-levodopa (SINEMET) 25-100 mg per tablet Take 1 Tablet by mouth 2 (two) times daily 05/20/20 24 Active MISCELLANEOUS MEDICAL SUPPLY MISCIndications:Hi story of CVA (cerebrovascular accident),Essentia l (primary) hypertension,Weakn ess Electric chair for transportation after stroke. Need for more independence. 1 for lifetime use. Dx code: Z86.73, Z59.82 1 Each 08/27/20 24 Active MISCELLANEOUS MEDICAL SUPPLY MISCIndications:Hi story of CVA (cerebrovascular accident),Weakness ,Abnormal gait,At risk for falling by miscellaneous route once daily [employer] MED for daily use. BMI 26.76, Height: 5'6, weight: 165lbs 1 Each 10/03/20 24 Active atorvastatin (LIPITOR) 80 mg tabletIndications: Medication management TAKE 1 TABLET BY MOUTH ONCE DAILY 30 Tablet 5 10/20/20 [address] tabletIndications: Medication management TAKE 1 TABLET BY MOUTH ONCE DAILY 30 Tablet 5 11/25/20 24 Active metoprolol tartrate (LOPRESSOR) 25 mg tabletIndications: Medication management TAKE 1 TABLET BY MOUTH two (2) times a day 60 Tablet 3 12/24/19 25 Active amLODIPine (NORVASC) 10 mg tabletIndications: Essential (primary) hypertension TAKE 1 TABLET BY MOUTH ONCE DAILY 30 Tablet 3 12/24/19 25 Active Active Problems Problem Noted Date Diagnosed Date Food insecurity 12/29/2024 Financial difficulties 12/29/2024 Meningioma, cerebral ([facility]) 10/26/2024 Overview (10/26/2024): 10/16/2024 MRI brain. -Findings are suggestive of chronic small vessel ischemic disease. -Stable appearance of the 2 cm extra-axial along the posteior leftward falx at the vertex. Findings are most suggestive of a stable small meningioma. No surronding edema. -No acute findings. Evidence of prior right cerebellar infarct. Weakness 10/03/2024 Essential (primary) hypertension 10/03/2024 Abnormal gait 10/03/2024 At risk for falling 10/03/2024 Unsatisfactory living conditions 04/06/2023 Lack of access to transportation 04/06/2023 History of CVA (cerebrovascular accident) 2021 Tobacco use disorder 09/25/2022 Moderate persistent asthma without complication 09/25/2022 Mild intermittent asthma without complication Chronic bronchitis ([facility]) 02/25/2021 Bipolar 1 disorder ([facility]) 02/25/2021 H/O colonoscopy with polypectomy 12/31/2019 Overview (12/31/2019): 12/14/2017 polyp (10mm) in he ascending colon. (Polypectomy). Polyp (5mm) in the transverse colon. (polypectomy). Polyp (5mm) in the sigmoid colon. (Polypectomy) diverticulosis of The sigmoid colon. Internal and external hemorrhoids. Environmental allergies 12/30/2019 Essential hypertension 12/30/2019 Recurrent major depressive disorder ([facility]) ADHD 12/30/2019 Resolved Problems Problem Noted Date Diagnosed Date Resolved Date Dizziness 09/25/2022 04/19/2023 Encounters Date Type Department Care Team Description 01/07/2025 Interim Notes [address] [address] Dalila Sanchez PA-C History of CVA (cerebrovascular accident) (Primary Dx); Weakness; Abnormal gait; Meningioma, cerebral (HCC-CMS) 12/29/2024 11:40 AM EST Telemedicine Visit [address] [address] Dalila Sanchez PA-C History of CVA (cerebrovascular accident) (Primary Dx); Weakness; Abnormal gait; Meningioma, cerebral (HCC-CMS); Weakness of both lower extremities; Financial difficulties 12/16/2024 Erroneous Telephone Encounter [facility] [address] [place] [address] Lady Jeancarlos, Front Office from Last 3 Months Immunizations Name Administration Dates Next Due Flu, Preservative Free 12/30/2019 INFLUENZA, SEASONAL, INJECTABLE 11/05/2017,10/10,12/28/2015 PFIZER COVID VACCINE, PURPLE CAP, 12+ 03/30/2022 PNEUMOCOCCAL CONJUGATE PCV 20 (Prevnar) 04/11/20 23 TDAP 04/07/2014 Family History Medical History Relation Name Comments Hypertension Father Heart Problems Mother Hypertension Mother Kidney disease Sister Relation Name Status Comments Brother 1 brother Father Mother Sister 1 sister Social History Tobacco Use Types Packs/Day Years Used Date Smoking Tobacco: Former Cigarettes 0.5 39 Smokeless Tobacco: Never Tobacco Cessation:Counseling Given: Yes Alcohol Use Standard Drinks/Week Comments Not Currently 0 (1 standard drink = 0.6 oz pur e alcohol) Social Connections Answer Date Recorded Connectedness 1 12/29/2024 Financial Resource Strain Answer Date R ecorded Financial Resource Strain 2 2024 Stress Answer Date Recorded Stress 1 12/29/2024 Physical Activity Answer Date Recorded Physical Activity 0 12/30/2019 Food Insecurity Answer Date Recorded Food 2 12/29/2024 Transportation Needs Answer Date Record ed Transportation 1 12/29/2024 Housing Stability Answer Date Recorded Housing 1 12/29/2024 Safety and Environment Answer Date Ken rded Safety 1 11/28/2023 Utilities Answer Date Recorded Utilities 1 12/29/2024 Employment Answer Date Recorded Stress 0 04/06/2023 Comments No Sex and Gender Information Value Date Recorded Sex Assigned at Female 01/03/2020 8:56 PM PST Legal Sex Female 11:32 AM PDT Gender Identity Female 01/03/2020 8:56 PM PST Sexual Orientation Straight 01/03/2020 8: 56 PM PST Occupation Industry Job Start Date Job End Date Retired Not on file Not on file Not on file Last Filed Vital Signs Vital Sign Reading Time Taken Comments Blood Pressure 110/82 09/24/2024 2:25 PM EDT Pulse 58 09/24/2024 2:25 PM EDT Temperature 36.8 ??C (98.3 ??F) 09/24/2024 2:25 PM ED T Respiratory Rate 16 09/24/2024 2:25 PM EDT Oxygen Saturation 91% 09/24/2024 2:25 PM EDT Inhaled Oxygen Concentration - - Weight 75.2 kg (165 lb 12.8 oz) 09/24/2024 2:25 PM EDT Height 167.6 cm (5' 6 ) 08/16/2023 2:19 PM EDT Body Mass Index 26.76 08/16/2023 2:19 PM EDT Plan of Treatment Health Maintenance Due Date Last Done Comments CT Colonography 2001 Colonoscopy 2001 Colorectal Cancer Screening 2001 FIT/gFOBT 2001 Fecal DNA 2001 Flexible Sigmoidoscopy 2001 Imm-Zoster, Recombinant (1 of 2) 2006 Bone Density Screening 2021 Imm-DTaP/Tdap/Td (2 - Td or Tdap) 04/07/2024 04/07/2014 Diabetes Screening 11/28/2024 11/28/2023, 0 11/28/2023, 02/12/2023, Additional history exists Lipid Screening 11/28/2024 11/28/2023, 01/25, 03/30/2022, Additional history exists Medicare Annual Wellness Visit 11/28/2024 11/28/2023 [id number] ( season) 2025 03/30/2022, 12/25/2021 Postponed from 07/27/2024 (Patient postponement) Depression Monitoring 03/28/2025 12/29/2024 , 08/27/2024, 11/28/2023, Additional history exists Imm-Influenza (#1) 2025 12/30/2019, 1 01/06/2017, 10/10/2016, Additional history exists Postponed from 07/27/2024 (Patient postponement) Falls Prevention 08/27/2025 08/27/2024, 08/16/2023 Tobacco Cessation Counseling (#1) 12/29/2025 Tobacco Screening 12/29/2025 12/29/2024 Hepatitis C Screening Completed 07/20/2021 Imm-Pneumococcal 65+ Completed 04/11/2023 Alcohol and Drug Screen Completed 12/29/19, 11/28/2023, 02/12/2023, Additional history exists Procedures Procedure Name Priority Date/Time Associated Diagnosis Comments OTHER ORDERS SCANNED DOCUMENT 12/02/2024 3:00 AM EST REFERRAL SCANNED DOCUMENT 11/14/2024 3:00 AM EST COMPREHENSIVE METABOLIC PANEL Routine 11/28/2023 4:19 PM EST Annual physical exam LIPIDS W RFLX TO DIRECT LDL Routine 11/28/2023 4:19 PM EST Annual physical exam HEPATITIS C AB W/RFLX HCV RNA, QT, RT PCR Routine 07/20/2021 9:48 AM EDT Encounter for medical examination to establish care from Last 3 Months or Most Recently Relevant to Health Maintenance Results * OTHER ORDERS SCANNED DOCUMENT (12/02/2024 3:00 AM EST) 12/02/2024 3:00 AM EST Dalila Sanchez PA-C SCAN OTHER ORDERS Final Resu lt * REFERRAL SCANNED DOCUMENT (11/14/2024 3:00 AM EST) 11/14/2024 3:00 AM EST [facility] Provider Default SCAN REFERRAL Final Resu lt * (ABNORMAL) LIPIDS W RFLX TO DIRECT LDL (11/28/2023 4:19 PM EST) CHOLESTEROL, TOTAL 211(H) <200 mg/dL [facility] HDL CHOLESTEROL 43(L) > OR = 50 mg/dL [facility] TRIGLYCERIDES 290(H) <150 mg/dL [facility] Comment: If a non-fasting specimen was collected, consider repeat triglyceride testing on a fasting specimen if clinically indicated. Stacy et al. J. of Clin. Lipidol. 2015;9:129-169. LDL-CHOLESTEROL 123(H) 99 mg/dL (calc) [facility] Comment: Reference range: <100 Desirable range <100 mg/dL for primary prevention; ?? <70 mg/dL for patients with CHD or diabetic patients with > or = 2 CHD risk factors. LDL-C is now calculated using the Alexx calculation, which is a validated novel method providing better accuracy than the Friedewald equation in the estimation of LDL-C. Kali SS et al. FIDELINA. 2013;310(19): 8225-9924 (http://education.EB Holdings/faq/RRZ555) CHOL/HDLC RATIO 4.9 <5.0 (calc) [facility] NON-HDL CHOLESTEROL 168(H) <130 mg/dL (calc) [facility] Comment: For patients with diabetes plus 1 major ASCVD risk factor, treating to a non-HDL-C goal of <100 mg/dL (LDL-C of <70 mg/dL) is considered a therapeutic option. Blood Blood / Unknown 11/28/2023 4 :19 PM EST 11/28/2023 4:20 PM EST Narrative [facility] - 11/29/2023 11:04 AM EST FASTING:NO us Dalila Sanchez PA-C LAB - BLOOD DRAW Final Resul t [facility] [address] [address], [facility] [address] [place] [address] * (ABNORMAL) COMPREHENSIVE METABOLIC PANEL (11/28/2023 4:19 PM EST) GLUCOSE 102 65 - 139 mg/dL [facility] Comment: ?Non-fasting reference interval UREA NITROGEN (BUN) 13 7 - 25 mg/dL [facility] CREATININE (blood) 0.92 0.50 - 1.05 mg/dL [facility] EGFR 68 > OR = 60 mL/min/1. 73m2 [facility] BUN/CREATININE RATIO SEE NOTE: 6 - [facility] Comment: ?? Not Reported: BUN and Creatinine are within ?? reference range. ? SODIUM 139 135 - 146 mmol/L [facility] POTASSIUM 4.4 3.5 - 5.3 mmol/L [facility] CHLORIDE 104 98 - 110 mmol/L [facility] CARBON DIOXIDE 29 20 - 32 mmol/L [facility] CALCIUM 9.3 8.6 - 10.4 mg/dL [facility] PROTEIN, TOTAL 6.8 6.1 - 8.1 g/dL [facility] ALBUMIN 4.3 3.6 - 5.1 g/dL [facility] GLOBULIN 2.5 1.9 - 3.7 g/dL (calc) [facility] ALBUMIN/GLOBULI N RATIO 1.7 1.0 - 2.5 (calc) [facility] BILIRUBIN, TOTAL 0.4 0.2 - 1.2 mg/dL [facility] ALKALINE PHOSPHATASE 118 37 - 153 U/L [facility] AST 22 10 - 35 U/L [facility] ALT 46(H) 6 - 29 U/L [facility] Blood Blood / Unknown 11/28/2023 4 :19 PM EST 11/28/2023 4:20 PM EST Narrative [employer] - 11/29/2023 11:04 AM EST FASTING:NO Dalila Sanhcez PA-C LAB - BLOOD DRAW Edited Resu lt - Final [facility] [address] [address], [facility] [employer] [facility] [address] [place] [address] * HEPATITIS C AB W/RFLX HCV RNA, QT, RT PCR (07/20/2021 9:48 AM EDT) HEPATITIS C ANTIBODY NON-REACT JUSTINO NON-REACT JUSTINO [facility] SIGNAL TO CUT-OFF 0.01 <1.00 [facility] Comment: HCV antibody was non-reactive. There is no laboratory evidence of HCV infection. In most cases, no further action is required. However, if recent HCV exposure is suspected, a test for HCV RNA (test code 69920) is suggested. For additional information please refer to http://education.Enflick/faq/URI61o8 (This link is being provided for informational/ educational purposes only.) Blood Blood / Unknown 07/20/2021 9 :48 AM EDT 07/20/2021 9:49 AM EDT Dalila Sanchez PA-C LAB - BLOOD DRAW Final Resul t [facility] [address] [address], [facility] [facility] [place] [place] [facility] [address] [address] from Last 3 Months or Most Recently Relevant to Health Maintenance [place] [employer] MEDICARE COMPLETE [employer] Care Teams Reimbursement Coordinator Relationship Specialty Start Date End Date Dalila Sanchez PA-C [address] [place] [address] PCP - General Internal Medicine 10/17/21
--- OUTSIDE RECORDS SUMMARY | 2025-02-05 16:00 | XMS_ITS | Encounter Summary ---
Author Organization [facility] Address [address] [place] [address] Care Team Providers Care Clean Up Supervisor Name Role Phone Jaron Garner PA-C Primary Care Provider + [phone] Reason for Referral * Neurology (Urgent) - Closed Specialty Diagnoses / Procedures Referred By Mirella ware Referred To Contact Neurology Diagnoses History of CVA (cerebrovascular accident) Weakness Abnormal gait Meningioma, cerebral (HCC-CMS) Weakness of both lower extremities Jaron Garner PA-C [address] [place] [address] Phone: tel: fax: Neurology, [facility] [address] [place] [address] Phone: tel: fax: Referral ID Status Reason Start Date Expiration Date V isits Requested Visits Authorized [id number] Closed Specialty Services Required 12/29/2024 12/29/2025 1 1 Comments Millie Guevara is a 69 year old female with hx of weakness at lower extremities since she had stroke 2021. Also concern of tremor at upper extremities. Please evaluate. 10/16/2024 MRI brain. -Findings are suggestive of chronic small vessel ischemic disease. -Stable appearance of the 2 cm extra-axial along the posteior leftward falx at the vertex. Findings are most suggestive of a stable small meningioma. No surronding edema. -No acute findings. Evidence of prior right cerebellar infarct. Reason for Visit * Reason Comments Referral Encounter Details Date Type Department Care Team (Latest Contact Info) Description 12/29/2024 11:40 AM EST Telemedicine Visit [facility] [address] [place] [phone] Jaron Garner PA-C [address] [place] [address] History of CVA (cerebrovascular accident) (Primary Dx); Weakness; Abnormal gait; Meningioma, cerebral (HCC-CMS); Weakness of both lower extremities; Financial difficulties Social History Tobacco Use Types Packs/Day Years [...] file Not on file Not on file documented as of this encounter Progress Notes * Jaron Garner PA-C - 12/29/2024 11:48 AM EST Millie Guevara is a 69 year old female who presents for Referral Subjective: Millie Guevara is a 69 year old female with a history of the following medical problems: Patient Active Problem List Diagnosis Environmental allergies Essential hypertension Recurrent major depressive disorder (HCC-CMS) ADHD H/O colonoscopy with polypectomy Mild intermittent asthma without complication Chronic bronchitis (HCC-CMS) Bipolar 1 disorder (HCC-CMS) History of CVA (cerebrovascular accident) Tobacco use disorder Moderate persistent asthma without complication Unsatisfactory living conditions Lack of access to transportation Weakness Essential (primary) hypertension Abnormal gait At risk for falling Meningioma, cerebral (HCC-CMS) Food insecurity Financial difficulties HPI Millie Guevara is a this visit with her daughter. Reported she had COVID like symptoms a few weeks ago. Also that she recently came from a cruise andfeels tired. Stated the weakness at her legs are worse. Millie has been presenting of weakness lower extremities since she had stroke 2021 that are progressive getting worse. Also concern of tremor at upper extremities. 10/16/2024 MRI brain showed: -Findings are suggestive of chronic small vessel ischemic disease. -Stable appearance of the 2 cm extra-axial along the posteior leftward falx at the vertex. Findingsare most suggestive of a stable small meningioma. No surronding edema. -No acute findings. Evidence of prior right cerebellar infarct. Patient has a pending santos February 04/2025 EEG. Denied seeing neurology. Depression Screen: 12/29/2024 11:21 AM Little interest or pleasure in doing things Not at all Feeling down, depressed or hopeless [include irritable if under 18] Not at all Trouble falling or staying asleep, or sleeping too much Not at all Feeling tired or having little energy Not at all Poor appetite or overeating Not at all Feeling bad about yourself - or that you are a failure or have let yourself or your family down Notat all Trouble concentrating on things like school work, reading or watching TV? Not at all Moving or speaking so slowly that other people could have noticed? Or the opposite - being so fidgety or restless that you have been moving around a lot more than usual Not at all Thoughts you would be better off or of hurting yourself in some way Not at all If you checked off any problems, how difficult have these problems made it for you to do your work,take care of things at home, or get along with other people? Not difficult at all PHQ-9 Total Score (Auto Calculated) 0 Depression Severity: None-minimal ROS: Review of Systems Vitals: There were no vitals filed for this visit. Estimated body mass index is 26.76 kg/m?? as calculated from the following: Height as of 08/16/23: 5' 6 (1.676 m). Weight as of 09/24/24: 165 lb 12.8 oz (75.2 kg). No height and weight on file for this encounter. Physical Exam Limited to audible findings Assessment/Plan: Z86.73 History of CVA (cerebrovascular accident) R53.1 Weakness R26.9 Abnormal gait D32.0 Meningioma, cerebral (HCC-CMS) R29.898 Weakness of both lower extremities Plan : REFERRAL TO NEUROLOGY Return in about 4 weeks (around 01/26/2025) for Weakness follow up (teleme). The following visit was conducted via Audio only. I educated the patient/guardian on the terms of telehealth and the patient verbally consented to this telemedicine visit. The patient was identified using their Name, and [facility] ID. I identified myself as JARON GARNER PA-C from [facility]. It was conducted in a private space to protect HIPPA sensitive information. Precautions were taken to provide confidentiality and security and patient was made aware of privacy considerations. The patients location was obtained and is [facility] home The patient/guardian was notified that the services were being provided from [facility] Location. The patient/guardian was notified how they can see a clinician in-person in the event of an emergency or if otherwise needed. Visit START TIME: 11:45AM END TIME: 11:59AM [employer] Miller used during visit? No documented in this encounter Miscellaneous Notes * Patient Instructions - Jaron Garner PA-C - 12/30/2024 1:21 PM EST If you are not able to keep your appointment please call 24-48 hours before your appointment to cancel or reschedule. documented in this encounter Plan of Treatment Scheduled Referrals Name Type Priority Associated Diagnoses Orde r Schedule REFERRAL TO NEUROLOGY Referral Urgent History of CVA (cerebrovascular accident) Weakness Abnormal gait Meningioma, cerebral (HCC-CMS) Weakness of both lower extremities Ordered: 12/29/2024 documented as of this encounter Visit Diagnoses Diagnosis History of CVA (cerebrovascular accident)- Primary Transient ischemic attack (TIA), and cerebral infarction without residual deficits Weakness Other malaise and fatigue Abnormal gait Abnormality of gait Meningioma, cerebral (HCC-CMS) Weakness of both lower extremities Financial difficulties Inadequate material resources documented in this encounter Additional Health Concerns Assessment Noted Time PHQ-9 Depression Total Score: 0 12/29/19 25 11:21 AM PST documented as of this encounter Care Teams Clean Up Supervisor Relationship Specialty Start Date End Date Jaron Garner PA-C [address] [place] [address] PCP - General Internal Medicine 10/17/21 documented as of this encounter
--- OUTSIDE RECORDS SUMMARY | 2025-02-05 16:00 | XMS_ITS | Encounter Summary ---
Author Organization [facility] Address [address] [place] [address] Care Team Providers Care Print Production Coordinator Name Role Phone Dalila Sanchez PA-C Primary Care Provider + [phone] Reason for Visit * Reason Comments Correspondence Encounter Details Date Type Department Care Team ([facility] st Contact Info) Description 08/17/2023 Interim Notes [facility] [address] [place] [phone] Gretchen Kim [address] [place], [place] [id number] Social History Tobacco Use Types Packs/Day Years Used Date Smoking Tobacco: Former Cigarettes 0.5 39 Smokeless Tobacco: Never Alcohol Use Standard Drinks/Week Comments Not Currently 0 (1 standard drink = 0.6 oz pur e alcohol) Social Connections Answer Date Recorded Social Connections and Isolation 2 04/06/2023 Financial Resource Strain Answer Date R ecorded Financial Resource Strain 1 2022 Stress Answer Date Recorded Stress 2 04/06/2023 Physical Activity Answer Date Recorded Physical Activity 0 12/30/2019 Food Insecurity Answer Date Recorded Food 1 04/06/2023 Transportation Needs Answer Date Record ed Transportation 2 04/06/2023 Housing Stability Answer Date Recorded Housing 2 04/06/2023 Safety and Environment Answer Date Ken rded Safety 1 04/06/2023 Utilities Answer Date Recorded Utilities 1 04/06/2023 Employment Answer Date Recorded Stress 0 04/06/2023 Comments No Sex and Gender Information Value Date Recorded Sex Assigned at Female 01/03/2020 8:56 PM PST Legal Sex Female 11:32 AM PDT Gender Identity Female 01/03/2020 8:56 PM PST Sexual Orientation Straight 01/03/2020 8: 56 PM PST Occupation Industry Job Start Date Job End Date Retired Not on file Not on file Not on file COVID-19 Exposure Response Date Recorded In the last 10 days, have yo u been in contact with someone who was confirmed or suspected to have Coronavirus/COVID-19? No / Unsure 08/16/2023 12:59 PM EDT documented as of this encounter Plan of Treatment Not on file documented as of this encounter Visit Diagnoses Not on filedocumented in this encounter Additional Health Concerns Assessment Noted Time PHQ-9 Depression Total Score: 8 08/16/20 23 2:23 PM PDT documented as of this encounter Care Teams Print Production Coordinator Relationship Specialty Start Date End Date Dalila Sanchez PA-C [address] [place] [address] PCP - General Internal Medicine 10/17/21 documented as of this encounter
--- OUTSIDE RECORDS SUMMARY | 2025-02-05 16:00 | XMS_ITS | Encounter Summary ---
Author Organization [facility] Address [address] [place] [address] Care Team Providers Care Professor Of Economics Name Role Phone Dalila Sanchez PA-C Primary Care Provider [phone] Encounter Details Date Type Department Care Team (Late st Contact Info) Description 08/23/2023 Interim Notes [facility] [address] [place] [phone] Gretchen Kim [address] [place] [address] Social History Tobacco Use Types Packs/Day Years [...] documented as of this encounter Care Teams Professor Of Economics Relationship Specialty Start Date End Date Dalila Sanchez PA-C [address] [place] [address] PCP - General Internal Medicine 10/17/21 documented as of this encounter
--- OUTSIDE RECORDS SUMMARY | 2025-02-05 16:00 | XMS_ITS | Encounter Summary ---
Author Organization [facility] Address [address] [place] [address] Care Team Providers Care Exerciser Horse Name Role Phone Dalila Sanchez PA-C Primary Care Provider + [phone] Reason for Referral * Neurology (Urgent) - Closed Specialty Diagnoses / Procedures Referred By Mirella ware Referred To Contact Neurology Diagnoses History of CVA (cerebrovascular accident) Weakness Abnormal gait Meningioma, cerebral ([facility]) Dalila Sanchez PA-C [facility] [place] [address] Phone: tel: fax: OTHER Referral ID Status Reason Start Date Expiration Date V isits Requested Visits Authorized [id number] Closed Specialty Services Required 01/07/2025 01/07/2026 1 1 Comments Millie Guevara is a 69 year old female with hx of weakness at lower extremities since she had stroke 2021. MRI + small meningioma. The weakness is getting worse. Also concern of tremor at upper extremities. Please evaluate. 10/16/2024 MRI brain. -Findings are suggestive of chronic small vessel ischemic disease. -Stable appearance of the 2 cm extra-axial along the posteior leftward falx at the vertex. Findings are most suggestive of a stable small meningioma. No surronding edema. -No acute findings. Evidence of prior right cerebellar infarct. Encounter Details Date Type Department Care Team (Late st Contact Info) Description 01/07/2025 Interim Notes [address] [phone] Dalila Sanchez PA-C [address] [place] [id number] History of CVA (cerebrovascular accident) (Primary Dx); Weakness; Abnormal gait; Meningioma, cerebral (HCC-CMS) Social History Tobacco Use Types Packs/Day Years [...] as of this encounter Progress Notes * Dalila Sanchez PA-C - 01/07/2025 3:09 PM EST Z86.73 History of CVA (cerebrovascular accident) (primary encounter diagnosis) Plan : REFERRAL TO NEUROLOGY R53.1 Weakness Plan : REFERRAL TO NEUROLOGY R26.9 Abnormal gait Plan : REFERRAL TO NEUROLOGY D32.0 Meningioma, cerebral (HCC-CMS) Plan : REFERRAL TO NEUROLOGY documented in this encounter Plan of Treatment Scheduled Referrals Name Type Priority Associated Diagnoses Orde r Schedule REFERRAL TO NEUROLOGY Referral Urgent History of CVA (cerebrovascular accident) Weakness Abnormal gait Meningioma, cerebral (HCC-CMS) Ordered: 01/07/2025 documented as of this encounter Visit Diagnoses Diagnosis History of CVA (cerebrovascular accident)- Primary Transient ischemic attack (TIA), and cerebral infarction without residual deficits Weakness Other malaise and fatigue Abnormal gait Abnormality of gait Meningioma, cerebral (HCC-CMS) documented in this encounter Additional Health Concerns Assessment Noted Time PHQ-9 Depression Total Score: 0 12/29/19 25 11:21 AM PST documented as of this encounter Care Teams Exerciser Horse Relationship Specialty Start Date End Date Dalila Sanchez PA-C [facility] [place] [address] PCP - General Internal Medicine 10/17/21 documented as of this encounter
--- OUTSIDE RECORDS SUMMARY | 2025-02-05 16:00 | XMS_ITS | Encounter Summary ---
Author Organization [facility] Address [address] [place] [address] Care Team Providers Care Seam Rubber Name Role Phone Dalila Sanchez PA-C Primary Care Provider + [phone] Encounter Details Date Type Department Care Team (Late st Contact Info) Description 08/04/2022 Interim Notes [facility] [address] [place] [phone] Anais Reid FNP [address] [place] [address] Social History Tobacco Use Types Packs/Day Years Used Date Smoking Tobacco: Every Day Cigarettes 0.5 39 Smokeless Tobacco: Never Alcohol Use Standard Drinks/Week Comments Not Currently 0 (1 standard drink = 0.6 oz pur e alcohol) Social Connections Answer Date Recorded Social Connections and Isolation 0 12/30/2019 Financial Resource Strain Answer Date R ecorded Financial Resource Strain 0 2019 Stress Answer Date Recorded Stress 0 12/30/2019 Physical Activity Answer Date Recorded Physical Activity 0 12/30/2019 Food Insecurity Answer Date Recorded Food 0 12/30/2019 Transportation Needs Answer Date Record ed Transportation 0 12/30/2019 Housing Stability Answer Date Recorded Housing 0 12/30/2019 Safety and Environment Answer Date Ken rded Safety 0 12/30/2019 Utilities Answer Date Recorded Utilities 0 12/30/2019 Employment Answer Date Recorded Employment 0 12/30/2019 Comments No Sex and Gender Information Value Date Recorded Sex Assigned at Female 01/03/2020 8:56 PM PST Legal Sex Female 11:32 AM PDT Gender Identity Female 01/03/2020 8:56 PM PST Sexual Orientation Straight 01/03/2020 8: 56 PM PST Occupation Industry Job Start Date Job End Date Retired Not on file Not on file Not on file documented as of this encounter Plan of Treatment Not on file documented as of this encounter Visit Diagnoses Not on filedocumented in this encounter Additional Health Concerns Assessment Noted Time PHQ-9 Depression Total Score: 0 03/30/20 22 11:18 AM PDT documented as of this encounter Care Teams Seam Rubber Relationship Specialty Start Date End Date Dalila Sanchez PA-C [facility] [place] [address] PCP - General Internal Medicine 10/17/21 documented as of this encounter
== END 2025-02-05 12:42 | disposition home or self-care (01) ==
LOC: HO.NEURO 12:41
PROVIDERS: PCP Physician Assistant; Visit Provider Physician Assistant
DX: R26.9 Unspecified abnormalities of gait and mobility (principal); Z86.73 Personal history of transient ischemic attack (TIA), and cerebral infarction without residual deficits
CPT/HCPCS: 95816

== ENCOUNTER 2025-06-08 12:18 | Outpatient (AMB) | payer OTHER, SELFPAY ==
[2025-06-08 13:03] VITALS: BP 96/60; PULSE 57; O2SAT 57; BMI 24.0
--- NOTE | 2025-06-08 13:03 | MHC.OFFVIS ---
Vital Signs 06/08/25 13:03 Height 5 ft 7 in Weight 153 lb BMI 24.0 BP 96/60 Blood Pressure Location Rt brachial Position Sitting Pulse 57 Pulse Source Pulse Oximeter Pulse Oximetry (%) 57 L Oxygen Delivery Method Room Air Intake Visit Reasons: Follow up 1yr Intake Note: Patient presents for follow up. no order on file for MRI head brain and cervical. PT note from [facility] scanned 05/30/24 Antenna Rigger Required: No Accompanied by: Self / Same As Patient Allergies lisinopril Allergy (Mild, Verified 06/08/25 13:07) Nausea and Vomiting Medication List - Last Reconciled 06/08/25 by Rafaela Miller MD albuterol sulfate 90 mcg/actuation 2 puffs inhalation Q6H PRN alprazolam 2 mg PO BID amlodipine-valsartan 5-160 mg 1 tab PO DAILY aripiprazole 10 mg PO BEDTIME aspirin (Adult Low Dose Aspirin) 81 mg PO DAILY atorvastatin 80 mg PO DAILY carbidopa-levodopa 25-100 mg (Sinemet) 1 tab PO BID citalopram 10 mg PO DAILY cyclobenzaprine 7.5 mg PO TID dextroamphetamine-amphetamine 20 mg ER 20 mg PO DAILY diclofenac sodium 1.6% ea topical docusate sodium 100 mg PO DAILY gabapentin 100 mg PO BID hydralazine 25 mg PO TID lidocaine 5% (Lidoderm) 1 patch topical DAILY meloxicam 15 mg PO DAILY metoprolol tartrate 12.5 mg PO BID HPI Comments Details: 70y/o female comes for neurological follow up - she was seen 18 mths ago . she was started on carbidopa/levodopa 25/100 1 tab bid- she takes 2 tabs qam and feels it helps. Since her last she feels her balance and gait are worse.she had a fall 1 month ago when she turned around. History from 01/2024 SHe had a stroke about 1 year ago . she was admitted at [facility] and has dizziness, feeling off balance, vomiting , passing. patient does not recall the whole history .she was in ICU for 4 days and about 1 month at a rehab. Review of her MRI from June 2022 showed an acute right cerebellar infarct without hemorrhagic transformation, high grade stenosis of right vertebral artery , left parafalcine meningioma flattening the superior sagittal sinus , chronic lacunar infarcts . CTA head and neck - June 2022 - No acute intracranial large vessel occlusion severe focal stenosis of small right middle cerebral artery anterior division branch arising from M1. severe stenosis of distal nondominant right vertebral artery. 19mmleft parafalcine meningioma she reports she has residual weakness, balance issues . she has double vision when tired. No vertigo . she has mild swallowing issues. There is also a mention of benign mass in the meninges which the patient is not aware off. she has h/o bipolar anxiety .she also has memory issues - mostly short term she has snoring and has some insomnia.she reports gasping arousals. she reports softer voice and drooling. she reports constipation since her stroke .No vertigo or diplopia [facility] Medical History (Updated 06/08/25 @ 13:27 by Rafaela Miller MD) Parkinsons disease Arterial ischemic stroke, vertebrobasilar, cerebellar, chronic Meningioma, cerebral Hyperreflexia Neck pain CVA (cerebrovascular accident due to intracerebral hemorrhage) Ataxia Heart disease COPD (chronic obstructive pulmonary disease) Asthma Smoker Osteoarthritis Depression Bipolar 1 disorder ADD (attention deficit disorder) HTN (hypertension) Breast implant status Surgical History History of ankle surgery Family History Mother No problems noted. Father No problems noted. Social History Household Members: Family Household Members Other:: Daughter Steff Caregiver staying overnight: Yes Housing: House Alcohol intake: current Comment: Occasional Patient Tobacco Use Status: Former Tobacco user Tobacco use type: Cigarette and Smokeless Tobacco Years Smoked: almost 50 years, quit in 2021- currently vapes Physical Exam Vital Signs: Last Vital Signs Pulse 57 06/08/25 13:03 BP 96/60 06/08/25 13:03 Pulse Ox 57 L 06/08/25 13:03 Oxygen Delivery Method Room Air 06/08/25 13:03 BMI result Body Mass Index 24.0 Const Orientation/consciousness: patient oriented x3 Eyes Pupils: Equal, round and reactive pupils present Neuro Other: Mild facial asymmetry with widened palpebral fissure on left and mildly decreased facial movement on the right Mild hoarse voice Decreased blink and facial expression Head tremors Decreased range of motion neck No rest tremors 2 + cog wheel rigidity right Upper extremity FFM decreased silvia R>L Foot taps decreased silvia R>L Motor - 5/5 speech mild dysprosody Gait- stooped, bradykinetic small steps , decreased arm swings silvia General: patient oriented x3 and moves all extremities Cranial nerves: Yes Facial sensation intact/muscles of mastication intact, Yes Equal, round and reactive pupils present, Yes Bilaterally intact EOM present, Yes Nystagmus not present, Yes Midline tongue present and Yes Symmetric palate elevation present Cognition (Neuro): normal cognition Assessment & Plan Assessment & Plan (1) Parkinsons disease: Code(s): G20.A1 - Parkinson's disease without dyskinesia, without mention of fluctuations Category: Medical Qualifiers: Dyskinesia presence: without dyskinesia Fluctuating manifestations: without fluctuating manifestations Qualified Code(s): G20.A1 - Parkinson's disease without dyskinesia, without mention of fluctuations (2) Arterial ischemic stroke, vertebrobasilar, cerebellar, chronic: Code(s): Z86.73 - Personal history of transient ischemic attack (TIA), and cerebral infarction without residual deficits Category: Medical (3) Meningioma, cerebral: Comment: left parafalcine meningioma Code(s): D32.0 - Benign neoplasm of cerebral meninges Category: Medical (4) Neck pain: Code(s): M54.2 - Cervicalgia Category: Medical (5) Hyperreflexia: Code(s): R29.2 - Abnormal reflex Category: Medical (6) Ataxia: Comment: post stroke ? parkinsonism Code(s): R27.0 - Ataxia, unspecified Category: Medical Plan Reviewed reports from [facility]. Discussed about risk factors for Stroke and risk factor management. Smoking cessation discussed Restart Aspirin 81mg qd Increase carbidopa/levodopa 25/100 2 tabs qam and 1 tab at noon and at [facility] for gait training - declines EEG ordered by her PCP shows right temporal irritability- it is not clear when it was done. she denies any episodes of confusion or passing out Medications: Changed From carbidopa-levodopa 25-100 mg (Sinemet) 1 tab PO BID 60 tabs 3RF To carbidopa-levodopa 25-100 mg (Sinemet) 2 tabs qam 1 tab qnoon q ramirez orally 2 times a day; 120 tabs 3RF Coding Level of Care Code Est Pt Level 4 (69664) Complex EM visit Add On G2211 Diagnoses Parkinson's disease without dyskinesia or fluctuating manifestations G20.A1 Dyskinesia presence: without dyskinesia Fluctuating manifestations: without fluctuating manifestations Arterial ischemic stroke, vertebrobasilar, cerebellar, chronic Z86.73 Meningioma, cerebral D32.0 Neck pain M54.2 Hyperreflexia R29.2 Ataxia R27.0
--- OUTSIDE RECORDS SUMMARY | 2025-06-08 13:15 | XMS_ITS ---
Author Name MS. Benedict Montanez APRN Address [address] [place] [address] Phone [phone] [facility] Care Team Providers Care Technical Illustrations Map Inker Name Role Phone Shaista Montanez Unavailable [phone] Mary Lujan Unavailable Unavailable GARNER, JARON Unavailable [phone] Unavailable Unavailable [phone] Unavailable Unavailable [phone] [facility] Unavailable Reason for Referral Not Available Allergies, adverse [...] mg Tab TAKE 1 TABLET BY MO VAH THREE TIMES DAILY NEEDED FOR PAIN 2024-04-23 No Data Available Problem List Problem Status Onset Date Resolved Date Synopsis Chronic pain-Acute painMuscle spasmPrimary osteoarthritis involving multiple joints Inactive 2023-08-09 N/A per acute call : Still having right arm pain, between elbow [...] as needed for muscle spasm #15 tablet ZYs1aFl New Meloxicam 15 mg Tab 1 tablet orally QD PRN pain #30 tablet [id number] New Lidoderm 5 % Patch 1 patch topically to affected area daily remove after 12 hours for pain #30 patch UFb6ySw New Diclofenac Sodium 1 % Gel 4 grams topically to affected area 4 times per day PRN #1 applicator [id number] requesting refill of diclofenac gel 09/12 states she has pain and weakness to right arm especially when lifting above her head, will refer to PT Hemiplegia and hemiparesis following cerebral infarction affecting left non-dominant side Active 2023-08-09 N/A continue plan of care for chronic and comorbid disease processes fall/safety igmawpdgnpb14/18 had stroke 7-8 months ago, denies any deficits at this time, eating ok, normal movement of all extremities, normal bowel bladder function, denies any headaches or blurred vision will refer to neuro as per member she has not followed with neuro06/02/24: Increase physical activities as tolerated. Maintain safety and fall precautions. Follow up with PCP as indicated. History of medical problems Inactive 2023-08-09 N/A Environmental allergiesEssential hypertensionRecurrent major depressive disorder ADHDH/O colonoscopy with polypectomyMild intermittent asthma without complicationChronic bronchitis Bipolar 1 disorderHistory of CVA (cerebrovascular accident)Tobacco use disorderModerate persistent asthma without complicationUnsatisfactory living conditionsLack of access to transportation Biceps tendinitis Resolved 2023-09-12 2024-06-02 [facility] states she has pain and weakness to right arm especially when lifting above her head, will refer to PT 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 Continue medications as directed. Encouraged relaxation, reassurance techniques as needed. Increase physical activities as tolerated. Maintain safety and fall precautions. Follow up with PCP as indicated. WeaknessLethargy Inactive 2023-08-09 N/A 05/16/20 23 1:40 PM PDT Office Visit [address] [phone] YashiraMikikaylan (Primary Dx);LethargyTherapeutic-M 9 mg iron-400 mcg tablet TAKE 1 TABLET BY MOUTH ONCE DAILY09/12 states her weakness/pain is something that has been occurring for the last month intermittently , denies any headache dizziness, nausea, vomiting, states she gets weakness/pain to right arm when she tries to brush her hair, crab picker anything that weighs will refer to PT Hypertensive heart failure Active 2023-08-09 N/A no s/sx or exace rbation continue plan of care and follow up [...] fall precautions. Follow up with PCP as indicated. Aneurysm of carotid artery Active 2023-08-09 N/A hx includes: Ane urysm of carotid arteryno acute issues continue plan of care for ongoing monitoring and management of multiple chronic and comorbid disease processes atorvastatin06/02/24: Managed with atorvastatin. Continue medications as directed. Encouraged diet and weight management. Discussed importance of routine labs and physical exams. Increase physical activities as tolerated. Maintain safety and fall precautions. Follow up with PCP as indicated. Bipolar II disorder, moderate, depressed, with anxious distress Active 2023-08-09 N/A hx include s:Unsatisfactory living conditions Lack of access to transportation Bipolar 1 disorder continue plan of care and follow up as instructed ALPRAZolam 2 mg Tab TAKE 1/2 TO 1 TABLET BY MOUTH TWICE DAILY NEEDED FOR SEVERE ANXIETYARIPiprazole 10 mg Tab TAKE 1 TABLET BY MOUTH ONCE DAILYCitalopram Hydrobromide 10 mg Tab TAKE 1 TABLET BY MOUTH EVERY BLXYDVW97/18 followed by psychiatry last appt 1 month ago06/02/24: PHQ-9 score: 10, YON-7 score: 10Continue medications as directed. Encouraged relaxation, reassurance, and redirection techniques as needed. Increase physical activities as tolerated. Maintain safety and fall precautions. Follow up with psychiatrist as indicated. Chronic obstructive pulmonary disease, unspecified COPD type Active 2023-08-09 N/A hx include s: Moderate persistent asthma without complication Mild intermittent [...] fall precautions. Follow up with PCP as indicated. Other problems related to medical facilities and other health care Active 2024-06-02 N/A PSYCH C ONTINGENCY PLANMember to call for the following symptoms: Agitation/ Delirium/ RestlessnessPlanned intervention: Contact mental health professional:/ Transfer member to [facility] services/ Haloperidol 0.5mg PO q8h PRN agitation/ Trazodone 50mg at bedtime/ Remind member of breathing exercises/ Increase dose of current medication:/ Limit extra stimulation. Benign neoplasm of cerebral meninges Active 2023-08-13 N/A per medical re cord 2021 Benign neoplasm of cerebral meningesno acute issues continue plan of care and follow up as instructed 09/12 will refer to a neurologist has not been to one in a while denies any pertinent s/s 06/02/24: Continue current treatment plan as directed. Discussed importance of routine labs and physical exams. Maintain safety and fall precautions. Follow up with neurologist as indicated. Encounters Encounters Type Facility Date of Service Diagnosis/Co mplaint No Data Available [facility], ([place]) [place]/2023 Hemiplga following cerebral infarction affecting unsp sideHypertensive heart disease with heart failureHeart failure, unspecifiedBipolar disorder, unspecifiedMajor depressive disorder, recurrent, in remission, unspecifiedChronic obstructive pulmonary disease, unspecifiedPersonal history of other specified conditionsBenign neoplasm of cerebral meningesWeaknessOther fatigueOther chronic painOther muscle spasmPolyosteoarthritis, unspecifiedPain, unspecified No Data Available [facility] [place] ([place] 08/09/2023 No Data Available [facility]2023 No Data Available [facility]20[place] No Data Available [facility]20[place] No Data Available [facility] No Data Available [facility]2023 No Data Available [facility]2023 No Data Available [facility] 08/[place]2023 No Data Available [facility], ([place]) 09/05/2023 Hemiplga following cerebral infarction affecting unsp sideOther chronic painOther muscle spasmPolyosteoarthritis, unspecifiedPain, unspecified No Data Available [facility], [place] 09/05/2023 Estab. patient 20-29min; 1 stable chronic or 2 minor; add add modifier 95 for video, modifier 93 for phone [facility], ([place]) 09/12/2023 Hypertensive heart disease with heart failureHeart failure, unspecifiedBipolar disorder, unspecifiedBenign neoplasm of cerebral meningesWeaknessOther fatigueOther chronic painOther muscle spasmPolyosteoarthritis, unspecifiedPain, unspecifiedBicipital tendinitis, unspecified shoulder Estab. patient 20-29min; 1 stable chronic or 2 minor; add add modifier 95 for video, modifier 93 for phone [facility], ([place]) 09/12/2023 Estab. patient 20-29min; 1 stable chronic or 2 minor; add add modifier 95 for video, modifier 93 for phone [facility], ([place] 09/12/2023 Estab. patient 30-39min; chronic exacerbation, 2 stable chronic or 1 acute illness add add modifier 95 for video, (do not use for phone, instead use 80098-75) [facility], ([place]) 06/02/2024 Hypertensive heart disease with heart failureHeart [...] (do not use for phone, instead use 79737-87) [facility] 06[place]02[place]20[place] Estab. patient 30-39min; chronic exacerbation, 2 stable chronic or 1 acute illness add add modifier 95 for video, (do not use for phone, instead use 17689-56) [facility] 06[place]02/20[place] Estab. patient 30-39min; chronic exacerbation, 2 stable chronic or 1 acute illness add add modifier 95 for video, (do not use for phone, instead use 91597-85) [facility] 06/02/20[place] Estab. patient 30-39min; chronic exacerbation, 2 stable chronic or 1 acute illness add add modifier 95 for video, (do not use for phone, instead use 28075-48) [facility] 06[place]/20[place] Estab. patient 30-39min; chronic exacerbation, 2 stable chronic or 1 acute illness add add modifier 95 for video, (do not use for phone, instead use 05783-98) [facility] 06[place]02/20[place] Estab. patient 30-39min; chronic exacerbation, 2 stable chronic or 1 acute illness add add modifier 95 for video, (do not use for phone, instead use 01615-56) [facility]/20[place] Estab. patient 30-39min; chronic exacerbation, 2 stable chronic or 1 acute illness add add modifier 95 for video, (do not use for phone, instead use 20946-48) [facility] 06[place]02/20[place] Estab. patient 30-39min; chronic exacerbation, 2 stable chronic or 1 acute illness add add modifier 95 for video, (do not use for phone, instead use 47209-58) [facility] 06/02/2024 Estab. patient 30-39min; chronic exacerbation, 2 stable chronic or 1 acute illness add add modifier 95 for video, (do not use for phone, instead use 58812-50) [facility] 06/02/2024 Estab. patient 30-39min; chronic exacerbation, 2 stable chronic or 1 acute illness add add modifier 95 for video, (do not use for phone, instead use 13019-15) [facility], ([place]) 06/02/2024 Vital Signs Date of Collection Vitals [...] tive Time Current Smoking Status Former smoker 2025-05-26 4 Sex Female History of Procedures Procedures Service Procedure code Service date Servicing provider Phone# No Data Available [id number] 2023-08-09 No Data Available No Data Available [...] Available Advance care planning discussed and documented advance care plan or surrogate decision-maker was documented in the medical record. (1123F) 1123F 2023-08-09 No Data Available No Data Availa ble SBP < 130 (3074F) 3074F 2023-08-09 No Data Available No Data Available DBP 80-89 (3079F) 3079F 2023-08-09 No Data Available No Data Available No Data Available [id number] 2023-09-05 No Data Available No Data Available Medication List Documented (1159F) 1159F 2023-09-05 No Data Available No Data Lizbeth ilable Estab. patient 20-29min; 1 stable chronic or 2 minor; add add modifier 95 for video, modifier 93 for phone [id number] 2023-09-12 No Data Available No Data Availa [...] (do not use for phone, instead use 20526-07) [id number] 2024-06-02 No Data Available No Data Availa [...] ble Advance care planning discussed and documented advance care plan or surrogate decision-maker was [...] Status: Oriented t o Person, Place and Time , Recall 3/3 unrelated words at 3 minutes 2024-06-02 [...] 80-89 (3079F)Advance care planning discussed and documented advance care plan or surrogate decision-maker was documented in the medical record. (1123F)Phone (patient, parent, or guardian); 21-30 minutes of medical discussion (no modifier 95)Continue to see PCP. Follow-up with [facility] as needed for any acute or disease education needs that may arise.05/16/2023 1:40 PM PDT Office Visit [address] [phone], Karen, NPWeakness (Primary Dx);LethargyTherapeutic-M 9 mg iron-400 [...] as needed for muscle spasm #15 tablet DJo4uHs New Meloxicam 15 mg Tab 1 tablet orally QD PRN pain #30 tablet ZCt7pJu New Lidoderm 5 % Patch 1 patch topically to affected area daily remove after 12 hours for pain #30 patch FNr2zIl New Diclofenac Sodium 1 % Gel 4 grams topically to affected area 4 times per day PRN #1 applicator RFx0 2023-09-05 13:39:48 Phone (patient, pare nt, or guardian); 11-20 minutes of medical discussion (no modifier 95)Continue to see PCP. Follow-up with Math[facility] as needed for any acute or disease [...] as needed for muscle spasm #15 tablet AQk0sIy New Meloxicam 15 mg Tab 1 tablet orally QD PRN pain #30 tablet CUs5iBf New Lidoderm 5 % Patch 1 patch topically to affected area daily remove after 12 hours for pain #30 patch QWr1tZu New Diclofenac Sodium 1 % Gel 4 grams topically to affected area 4 times per day PRN #1 applicator YRt430/11 requesting refill of diclofenac gel 2023-09-12 08:34:50 Televideo 20-29min; 1 stable chronic or 2 minor; add modifier 95Continue to see PCP. [facility] disease [facility] needs that may arise 18/06.continue plan of care for chronic and comorbid disease processes fall/safety prcmopklpbn58/18 had stroke 7-8 months ago, denies any deficits at this time, eating ok, normal movement of all extremities, normal bowel bladder function, denies any headaches or blurred vision will refer to neuro as per member she has not followed with neuro05/16/2023 1:40 PM PDT Office Visit [address] [phone], Karen, NPWeakness (Primary Dx);LethargyTherapeutic-M 9 mg iron-400 mcg tablet TAKE 1 TABLET BY MOUTH ONCE DAILY09/12 states her weakness/pain is something that has been occurring for the last month intermittently , denies any headache dizziness, nausea, vomiting, states she gets weakness/pain to right arm when she tries to brush her hair, crab picker anything that weighs will refer to PTno [...] Tab TAKE 1 TABLET BY MOUTH EVERY IVCPPVT71/18 followed by psychiatry last appt 1 month [...] as needed for muscle spasm #15 tablet MJz0iNc New Meloxicam 15 mg Tab 1 tablet orally QD PRN pain #30 tablet QLi7sIj New Lidoderm 5 % Patch 1 patch topically to affected area daily remove after 12 hours for pain #30 patch FZf5kCo New Diclofenac Sodium 1 % Gel 4 grams topically to affected area 4 times per day PRN #1 applicator AIo099/11 requesting refill of diclofenac gel 09/12 states [...] modifier 95Advance care planning discussed and documented advance care plan or surrogate decision-maker was documented in the medical record. (1123F)Pain Assessment - NO pain documented (1126F)Continue to see PCP. Follow-up with [facility] as needed for any acute or disease education needs that may arise.continue plan of care for chronic and comorbid disease processes fall/safety ryzkxxlufgb19/18 had stroke 7-8 months ago, denies any [...] Tab TAKE 1 TABLET BY MOUTH EVERY FAZLRFM00/18 followed by psychiatry last appt 1 month [...] Contact mental health professional:/ Transfer member to [address] [place] [address]/ Haloperidol 0.5mg PO q8h PRN agitation/ Trazodone [...] Do you have a Durable Power of [place] Hand for Healthcare, or Healthcare Proxy Or Guardianship? [...]
--- OUTSIDE RECORDS SUMMARY | 2025-06-08 13:16 | XMS_ITS | Clinical Summary ---
Author Organization [facility] Address [address] [place] [address] Phone Care Team Providers Care Drafter Name Role Phone Alejandro Nguyen MD Primary Care Provider [phone] Surgical History Surgery Date Site/Laterality Comments OTHER [...] drinking heavily in 2011 Bipolar disorder, manic ([facility] V24, [facility] V28) 07/03/2017 DX:Bipolar disorder, manic ( [facility]) COPD (chronic obstructive pu lmonary disease) ([facility] V24, [facility] V28) 07/03/2017 DX:COPD (chronic o bstructive pulmonary disease) ([facility]) Bipolar disorder ([facility] V2 4, [facility] V28) 07/03/2017 DX:Bipolar disorder ([facility]) Seizure disorder ([facility] V2 4, [facility] V28) 08/07/2017 DX:Seizure disorder (HCC) Family History Medical History Relation Name Comments [...] Vaccines (1 of 2) 2006 RSV Immunization Adult Patients (1 - Risk 60-74 years 1-dose series) 2016 Colorectal Cancer Screening: Colonoscopy 10/25/2022 Falls Risk Assessment 10/25/2022 Medicare Annual Wellness Visit 10/25/2022 Osteoporosis Screening (Bone Density Screening) 10/25/2022 Social Influencers of Health Screening 10/25/2022 DTaP,Tdap,and Td Vaccines (2 - Td or Tdap) 04/07/2024 04/07/2014 COVID-19 Vaccine (3 - season) 2024 03/30/2022, 12/25/2021 Hypertension/CHF/CAD Annual BMP Blood Test 11/28/2024 11/28/2023 Influenza Vaccine (#1) 2025 , 11/05/2017, 10/10/2016, Additional history exists Depression Screening 12/29/2025 12/29/2024 Cholesterol Screening (Lipid [...] age to complete this topic Meningococcal B Vaccine Aged Out No l onger eligible based on patient's age to complete this topic RSV Immunization Patients Under 20 months Aged Out No longer eligible based on patient's age to complete this topic Varicella Vaccines Aged Out No longer eligible based on patient's age to complete this topic Insurance [employer] MEDICARE MEDICAID - [place] Advance Directives Documents on File Type Date Recorded 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
--- OUTSIDE RECORDS SUMMARY | 2025-06-08 13:16 | XMS_ITS | Encounter Summary ---
Author Organization [facility] Address [address] [place] [address] Care Team Providers Care Softball Winder Name Role Phone Dalila Sanchez PA-C Primary Care Provider + [phone] Encounter Details Date Type Department Care Team (Late st Contact Info) Description 08/23/2023 Interim Notes [facility] [address] [place] [phone] Gretchen Kim [address] [place] [address] Social History Tobacco Use Types Packs/Day Years [...] documented as of this encounter Care Teams Softball Winder Relationship Specialty Start Date End Date Dalila Sanchez PA-C [address] [place] [address] PCP - General Internal Medicine 10/17/21 documented as of this encounter
== END 2025-06-08 13:37 | disposition home or self-care (01) ==
LOC: HO.HSMS 12:18
PROVIDERS: Visit Provider Psychiatry & Neurology Neurology
DX: G20.A1 Parkinson's disease without dyskinesia, without mention of fluctuations (principal); Z86.73 Personal history of transient ischemic attack (TIA), and cerebral infarction without residual deficits; D32.0 Benign neoplasm of cerebral meninges; M54.2 Cervicalgia; R29.2 Abnormal reflex; R27.0 Ataxia, unspecified
CPT/HCPCS: 99214